=== PATIENT | male | born 1980 | race African-American/Black ===

== ENCOUNTER 2018-07-29 08:35 | Emergency (ER) | payer BC | END 2018-07-29 08:58 | disposition home or self-care (01) | LOC: BURERS 08:35 | DX: J06.9 Acute upper respiratory infection, unspecified (principal); F17.210 Nicotine dependence, cigarettes, uncomplicated | CPT/HCPCS: 99281 ==

== ENCOUNTER 2019-08-25 11:35 | Emergency (ER) | payer BC, SELFPAY | END 2019-08-25 12:50 | disposition home or self-care (01) | LOC: BURERS 11:35 | DX: J06.9 Acute upper respiratory infection, unspecified (principal); F17.210 Nicotine dependence, cigarettes, uncomplicated | CPT/HCPCS: 87804; 99283 ==